=== PATIENT | male | born 1975 | race Caucasian/White ===

== ENCOUNTER 2017-05-22 12:01 | Emergency (ER) | payer MEDICAID, OTHER ==
[~2017-05-22] VITALS: Ht 175.3 cm; Wt 79.4 kg
[2017-05-22 12:20] VITALS: BP 120/78
--- NOTE | 2017-05-22 12:40 | Emergency Room Report ---
History of Present Illness General Chief Complaint: Male Urogenital Problems Source: Patient Present Illness HPI 42-yo male presents to ER with complaints of STI. Complains of green discharge and dysuria for the past 3 days. Reports recent history unprotected sex. Reports history of chlamydia infections in the past with similar symptoms. Patient complains of rash on right lower abdomen and top of left foot, complains of pruritis. Denies pain. Patient denies fever, chest pain, SOB, genital rash, blisters. Allergies: Coded Allergies: No Known Allergies (Unverified , 05/22/17) Patient History Past Medical History: see triage record Past Surgical History: none Immunizations: UTD Reviewed Nursing Documentation: PMH: Agreed, PSxH: Agreed Nursing Documentation-PMH Past Medical History: No Stated History Review of Systems All Other Systems: negative except mentioned in HPI Physical Exam Vital Signs Date Time Temp Pulse Resp B/P (MAP) Pulse Ox O2 Delivery O2 Flow Rate FiO2 05/22/17 12:11 98.1 100 18 118/79 96 Room Air Sp02 EP Interpretation: reviewed, normal General Appearance: no apparent distress, alert, GCS 15, non-toxic Head: normocephalic, atraumatic Eyes: bilateral eye normal inspection, bilateral eye PERRL, bilateral eye EOMI Respiratory: no respiratory distress, no accessory muscle use, speaking full sentences Genitourinary: deferred Musculoskeletal: gait/station normal, normal range of motion, non-tender Neurologic: alert, oriented x3, responsive, motor strength/tone normal, sensory intact, speech normal Psychiatric: judgement/insight normal, memory normal, mood/affect normal, no suicidal/homicidal ideation Skin: normal color, no rash, warm/dry, abrasions - right lower abdomen Medical Decision Making PA Attestation Dr. Brenner is my supervising Physician whom patient management has been discussed with. Diagnostic Impression: Primary Impression: STI (sexually transmitted infection) Additional Impression: Abrasion ER Course Pt. presents to the ED c/o STI. Ddx considered but are not limited to gonorrhea, chalmydia, cystitis, pylonephritis. Vital signs: are WNL, pt. is afebrile ORDERS: None required at this time. ED INTERVENTIONS: -Azithromycin -Rocephin DISCHARGE: Advised to use safe sex practices including but not limited to use of condoms. Instructed patient to follow up with STI clinic and/or PCP for future STI treatment and prevention. Patient provided with Bacitracin for abrasion on skin. Instructed to follow up wit PCP for further treatment of skin. Instructed patient to inform partner of need for treatment to prevent future infection. At this time pt. is stable for d/c to home. Will provide printed patient care instructions, and any necessary prescriptions. Care plan and follow up instructions have been discussed with the patient prior to discharge Last Vital Signs Date Time Temp Pulse Resp B/P (MAP) Pulse Ox O2 Delivery O2 Flow Rate FiO2 05/22/17 12:20 98.1 74 18 120/78 96 Room Air Disposition: HOME, SELF-CARE Condition: Stable Scripts Bacitracin/Polymyxin B Sulfate (BACITRACIN-POLYMYXIN OINTMENT) 28.35 Gm Oint...g. 1 APPLIC TP BID for 7 Days, #1 GM Prov: Ari Liang 05/22/17 Patient Instructions: Sexually Transmitted Disease, [id number] Additional Instructions: Followup with primary care provider in 3 -5 days. Take medications as directed. Patient questions asked and answered. ER precautions given, patient instructed to return to ER immediately for any new or worsening of symptoms. Ari Liang May 22, 2017 12:40
[2017-05-22] MEDS ORDERED: Azithromycin 250mg tab ORAL ONE (12:45)
[2017-05-22] MEDS ORDERED: Lidocaine 1% MPF 10mg/ml 5ml INJ ONE (12:45)
[2017-05-22] MEDS ORDERED: BACITRACIN-P28.35 GM TP (12:47)
[2017-05-22 12:56] VITALS: BP 120/78
== END 2017-05-22 12:56 | disposition home or self-care (01) ==
LOC: EMR 12:50
DX: A64 Unspecified sexually transmitted disease (principal); S30.811A Abrasion of abdominal wall, initial encounter; X58.XXXA Exposure to other specified factors, initial encounter; Y92.9 Unspecified place or not applicable
CPT/HCPCS: 96372; 99283; J0696; Q0144